=== PATIENT | male | born 1955 | race African-American/Black ===

== ENCOUNTER 2016-04-16 19:28 | Emergency (ER) | payer OTHER ==
[~2016-04-16] VITALS: Ht 165.1 cm; Wt 68.2 kg
[~2016-04-16 19:28] MED LIST: PERCT10 PO
[2016-04-16] MEDS ORDERED: KETOROLAC TROMETHAMINE 60 MG/2 ML VIAL IM ONE (20:45)
[2016-04-16 21:00] VITALS: BP 132/78
== END 2016-04-16 21:38 | disposition home or self-care (01) ==
LOC: EMS 19:31
DX: M25.551 Pain in right hip (principal); M54.5 Low back pain; G89.29 Other chronic pain; F17.210 Nicotine dependence, cigarettes, uncomplicated; F12.90 Cannabis use, unspecified, uncomplicated
CPT/HCPCS: 96372; 99283; J1885

== ENCOUNTER 2017-01-06 00:28 | Emergency (ER) | payer OTHER ==
[~2017-01-06] VITALS: Ht 185.4 cm; Wt 86.4 kg
[2017-01-06 00:34] VITALS: BP 142/87
== END 2017-01-06 01:10 | disposition left against medical advice (07) ==
LOC: EMS 00:29
DX: Z53.21 Procedure and treatment not carried out due to patient leaving prior to being seen by health care provider (principal)